=== PATIENT | female | born 1965 | race Caucasian/White ===

== ENCOUNTER 2025-05-31 10:07 | Emergency (ER) | payer OTHER, SELFPAY ==
--- NOTE | ~2025-05-31 | CT_ITS ---
EXAMINATION: CT ABDOMEN PELVIS WITH IV CONTRAST HISTORY: abdominal pain COMPARISON: There are no prior studies for available comparison. TECHNIQUE: CT scan of the abdomen and pelvis was performed following administration of 85 mL Omnipaque 350 using standard departmental protocol. Coronal and sagittal reformatted images were generated and reviewed. Oral contrast material was not administered at the request of the referring physician. This CT exam was performed with one or more of the following dose reduction techniques: automated exposure control, adjustment of the mA and/or kV according to patient size, use of iterative reconstruction technique. DLP: 505 mGy-cm FINDINGS: LOWER CHEST: The visualized lung bases are clear. There is no pleural effusion. CARDIOVASCULATURE: The heart is normal in size. There is no pericardial effusion. LIVER: The liver is normal in size and contour. No liver mass is identified. The hepatic and portal veins are patent. GALLBLADDER / BILE DUCTS: The gallbladder is surgically absent. There is no intra or extrahepatic biliary ductal dilatation. SPLEEN: The spleen is normal in size. No focal splenic lesion is identified. PANCREAS: The pancreas is unremarkable in appearance. ADRENAL GLANDS: Within normal limits. KIDNEYS/RETROPERITONEUM: The kidneys demonstrate lobulated contours. No renal calculi are identified. There is no hydronephrosis. No renal masses are identified. LYMPH NODES: No abdominal or pelvic lymphadenopathy. VASCULATURE: The abdominal aorta is normal in caliber. MESENTERY/PERITONEUM: No free fluid. No masses. There is no free intraperitoneal gas. STOMACH: There is a small hiatal hernia. The remainder of the stomach is collapsed. SMALL BOWEL: The small bowel is normal in caliber. COLON: There are scattered diverticuli of the descending and sigmoid colon, without evidence of diverticulitis APPENDIX: Normal. URINARY BLADDER/PELVIC ORGANS: The urinary bladder is collapsed, limiting evaluation. The uterus and ovaries are unremarkable. BONES / SOFT TISSUES: No suspicious bony or soft tissue abnormalities. CT/CT abdomen pelvis w IV con IMPRESSION: 1. Small hiatal hernia. 2. Diverticulosis of the descending and sigmoid colon, without evidence of diverticulitis. Electronically signed by: Lavelle Wright MD 05/31/2025 12:25 PM EDT
[2025-05-31 10:14] VITALS: BP 166/82; PULSE 86; RESP 20; TEMP 36.3; O2SAT 98; BMI 29.1
[2025-05-31 10:37] LABS: MANUAL DIFF FLAG NO
[2025-05-31 10:39] LABS: Hematocrit 37.8 % (37.0-47.0); Hemoglobin 12.5 g/dl (12.0-16.0); Imm Gran Abs Auto 0.05 X10*3/uL (0.00-0.03); Imm Gran Pct Auto 0.4 % (0.0-0.4); Lymphocytes Absolute Auto 1.8 X10*3/uL (1.2-4.9); Mean Corpuscular HGB Conc 33.1 g/dl (31.0-35.0); Mean Corpuscular Hemoglobin 29.5 pg (27.0-33.0); Mean Corpuscular Volume 89.2 fL (80.0-98.0); NRBC Abs Auto 0.000 X10*3/uL (0.0-0.012); NRBC Pct Auto 0.0 /100WBC (0.0-0.2); Platelet Count 285 X10*3/uL (160-400); Red Blood Count 4.24 X10*6/uL (4.20-5.50); White Blood Count 11.3 X10*3/uL (4.8-10.8)
[2025-05-31 10:57] LABS: Alanine Aminotransferase 32 U/L (0-31); Albumin Level 4.1 g/dL (3.5-5.0); Alkaline Phosphatase 94 U/L (39-117); Anion Gap 12 (12-20); Aspartate Amino Transferase 26 U/L (5-31); Blood Urea Nitrogen 16 mg/dL (9-16); Calcium 9.4 mg/dL (8.4-10.2); Carbon Dioxide 25 mmol/L (22-29); Chloride 111 mmol/L (96-108); Creatinine Clr Calc Pharmacy 72.3; Estimated Glomerular Filt Rate > 60; Potassium 4.6 mmol/L (3.3-5.1); Sodium 143 mmol/L (135-145); Total Protein 7.0 g/dL (6.5-8.0)
--- NOTE | 2025-05-31 10:59 | ED_ITS ---
HPI - Abdominal Pain General Chief Complaint: Abdominal Pain Stated Complaint: abd pain and side pain into back Time Seen by Provider: 05/31/25 10:41 Source: patient Mode of arrival: ambulatory Limitations: no limitations History of Present Illness ED Provider: HPI narrative: 59-year-old woman presenting with worsening right-sided abdominal pain, as well as flank pain, has been getting worse over the past few days, she did have recent bladder infection she states she finished a course of antibiotics, she is also developing diarrhea as well and some nausea. No fevers or chills no chest pain or dyspnea. Related Data Previous Rx's ?Medication ?Instructions ?Recorded naproxen 500 mg tablet (Naprosyn) 500 mg PO BID #14 ta bs 05/31/25 ondansetron 4 mg disintegrating 4 mg PO Q8H PRN nausea and 05/31/25 tablet vomiting #4 tabs oxycodone 5 mg tablet 5 mg PO Q6H PRN pain #10 tab s 05/31/25 Allergies Allergy/AdvReac Type Severity Reaction Status Date / Time Penicillins Allergy Unknown Verified 05/31/25 10:14 Review of Systems Constitutional: Reports as per HPI [facility] Social History Social History Smoked in Last 30 Days: Yes Advance Directives: No Advance Directives Information Provided: Yes Do you have a plan to hurt others: No Plan Patient : No Physical Exam ED Vital Signs: Vital Signs - 24 hr 05/31/25 10:14 Temperature 97.3 F Pulse Rate 86 Respiratory Rate 20 Blood Pressure 166/82 H Pulse Oximetry 98 Oxygen Delivery Method Room Air BMI result Body Mass Index 29.1 Const Other: * Gen: ?Overall well-appearing patient * HEENT: PERRLA, EOMI, MMM, * Neck: Supple, no LAD * CV: RRR, no obvious murmurs appreciated * Resp: ?No wheezing rales rhonchi no stridor moving air well * Abd: ?Bowel sounds are present, right lower quadrant tenderness, no CVA tenderness * MSK: FROM, strength 5/5 all extremities * Skin: Warm, dry, intact, * Neuro: ?Alert and oriented x3, moving upper and lower extremities symmetrically, no obvious facial asymmetry noted Medical Decision Making Medical Decision Making [facility] Narrative: Patient is presenting with abdominal pain, flank pain, differential is quite broad involving renal, colonic issues, we will require imaging, we will start with pain control, we will continue to monitor, disposition to be determined. Differential Diagnosis Differential Diagnoses: The differential diagnosis associated with the presentation includes Pyelonephritis, appendicitis, diverticulitis, volvulus, hernia, renal colic Admission/Observation Consideration of admission/observation: Escalation of care including admission/observation considered 2022 Emergency Medicine Coding Guide from [employer] on 05/31/2025 All calculations should be rechecked by clinician prior to use RESULT SUMMARY: 5 Estimated Level of Service Problems: Moderate (4) Risk: High (5) Data: Extensive (5) NARRATIVE MDM: This patient's problem complexity is Moderate as patient: has a new undiagnosed problem with uncertain prognosis but that could be serious. This patient's risk is High due to: overall presentation requiring evaluation for a potentially High-risk process. This patient's data complexity is Extensive due to: -multiple tests ordered/reviewed -independent interpretation of imaging or EKG INPUTS: Number and Complexity ?> 5 = 4: undiagnosed new problem, uncertain outcome (e) Risk level ?> 4 = High Tests ordered ?> 2 = 2 Tests results reviewed (excluding labs) ?> 2 = 2 Prior external notes reviewed ?> 0 = 0 Assessment requiring and independent historian ?> 0 = No Independent interpretation of tests ?> 1 = Yes Discussed management/test interpretation w/external professional ?> 0 = No Lab Data MDM Lab Attestation statement: I reviewed the patient's lab results. 05/31/25 10:32 05/31/25 10:32 Labs: Lab Results 05/31/25 05/31/25 Range/Units 10:32 11:13 WBC 11.3 H (4.8-10.8) X10*3/uL RBC 4.24 (4.20-5.50) X10*6/uL Hgb 12.5 (12.0-16.0) g/dl Hct 37.8 (37.0-47.0) % MCV 89.2 (80.0-98.0) fL MCH 29.5 (27.0-33.0) pg MCHC 33.1 (31.0-35.0) g/dl RDW 13.2 (11.0-16.0) % Plt Count 285 (160-400) X10*3/uL MPV 10.1 (9.4-12.3) fL Immature Gran % (Auto) 0.4 (0.0-0.4) % Neut % (Auto) 76.2 H (45-73) % Lymph % (Auto) 15.8 L (20-40) % [place] % (Auto) 6.3 (2-11) % Eos % (Auto) 0.9 (0-4) % Baso % (Auto) 0.4 (0-2) % Lymph # (Auto) 1.8 (1.2-4.9) X10*3/uL [place] # (Auto) 0.7 (0.1-1.2) X10*3/uL Eos # (Auto) 0.1 (0.0-0.4) X10*3/uL Baso # (Auto) 0.1 (0.0-0.2) X10*3/uL Abs Immat Gran (auto) 0.05 H (0.00-0.03) X10*3/uL Absolute Neuts (auto) 8.6 H (2.0-8.3) x10*3/uL Absolute Nucleated RBC 0.000 (0.0-0.012) X10*3/uL Nucleated RBC % (auto) 0.0 (0.0-0.2) /100WBC Sodium 143 (135-145) mmol/L Potassium 4.6 (3.3-5.1) mmol/L Chloride 111 H (96-108) mmol/L Carbon Dioxide 25 (22-29) mmol/L Anion Gap 12 (12-20) BUN 16 (9-16) mg/dL Creatinine 0.82 (0.5-1.4) mg/dL Estim Creat Clear Calc 72.3 Estimated GFR > 60 Random Glucose 168 H (60-115) mg/dL Calcium 9.4 (8.4-10.2) mg/dL Total Bilirubin 0.2 (0.0-1.0) mg/dL AST 26 (5-31) U/L ALT 32 H (0-31) U/L Alkaline Phosphatase 94 (39-117) U/L Total Protein 7.0 (6.5-8.0) g/dL Albumin 4.1 (3.5-5.0) g/dL Urine Color Yellow Urine Appearance Clear Urine pH 5.5 (5.0-9.0) Ur Specific [place] >= 1.030 H (1.005-1.025) Urine Protein Trace (Neg-Trace) mg/dL Urine Glucose (UA) 100 H (Negative) mg/dL Urine Ketones Trace (Negative) mg/dL Urine Blood Negative (Negative) Urine Nitrite Negative (Negative) Ur Leukocyte Esterase Small (1+) H (Negative) Urine RBC 0-2 (0-2) /HPF Urine WBC 6-10 H (0-5) /HPF Ur Squamous Epith Cells 6-10 (0-2) /HPF Urine Bacteria None Seen (None Seen) Hyaline Casts 3-5 (0-2) /LPF Radiology Impression Discussion of test interpretation with radiology: I have reviewed the radiologist's reading. (1. Small hiatal hernia. 2. Diverticulosis of the descending and sigmoid colon, without evidence of diverticulitis.) Medications Administered Discontinued Medications Generic Name Dose Route Start Last Admin Trade Name Freq PRN Reason Stop Dose Admin Sodium Chloride 1,000 mls @ 999 mls/hr 05/31/25 11:00 05/31/25 12:02 Ns IV 05/31/25 12:00 999 mls/hr .Q1H1M TEMO Administration Iohexol 100 ml 05/31/25 12:08 05/31/25 12:12 Iohexol 350 Mg/Ml 100 Ml Infus..Btl IV 05/31/25 12:09 85 ml ONCE ONE Administration Ketorolac Tromethamine 15 mg 05/31/25 10:49 05/31/25 12:00 Ketorolac Tromethamine 15 Mg/Ml Vial IVPUSH 05/31/25 10:50 15 mg ONCE ONE Administration Ondansetron HCl 4 mg 05/31/25 10:49 05/31/25 12:00 Ondansetron Hcl 4 Mg/2 Ml Vial IVPUSH 05/31/25 10:50 4 mg ONCE ONE Administration Discharge Plan Discharge Clinical Impression: Right flank pain, Abdominal pain, right lower quadrant Patient Disposition: Home, Self-Care Additional Instructions: Blood work largely reassuring, cat scan without any kidney stones or kidney issues, your blood work also reassuring as well as urine, I am not sure what is causing your discomfort I suspect it is musculoskeletal, I recommend they take Naprosyn 500 mg twice a day, Zofran as needed for nausea and vomiting as you are having diarrhea just keep up with fluid losses and oxycodone to help with the additional pain control otherwise follow up with the PCP any other issues or concerns come back to the ER Prescriptions: New naproxen [Naprosyn] 500 mg tablet 500 mg PO BID Qty: 14 0RF ondansetron 4 mg tablet,disintegrating 4 mg PO Q8H PRN (Reason: nausea and vomiting) Qty: 4 0RF oxycodone 5 mg tablet 5 mg PO Q6H PRN (Reason: pain) Qty: 10 0RF Rx Instructions: Partial Fill upon patient request. Print Language: Turkmen
[2025-05-31 11:25] LABS: Appearance Urine Clear; Glucose Urine UA 100 mg/dL (Negative); PH 5.5 (5.0-9.0); Specific Gravity - Urine >= 1.030 (1.005-1.025); UMIC TRIGGER UACC YES
[2025-05-31 11:41] LABS: UACC Culture Trigger YES
[2025-05-31] MEDS: iohexoL 350 MG/ML 100 ML INFUS..BTL IV (12:12)
[2025-05-31 13:28] VITALS: BP 132/71; PULSE 78; RESP 16; TEMP 36.6; O2SAT 97
== END 2025-05-31 13:40 | disposition home or self-care (01) ==
PROVIDERS: Emergency Provider Emergency Medicine; PCP Internal Medicine
DX: R10.31 Right lower quadrant pain (principal); M54.50 Low back pain, unspecified; Z79.899 Other long term (current) drug therapy
CPT/HCPCS: 36415; 74177; 80053; 81001; 85025; 87086; 87147; 96372; 96374; 96375; 99284; J1790; J1885; J2405; Q9967

== ENCOUNTER → 2025-05-31 10:50 | Outpatient (BNV) | payer OTHER, SELFPAY | PROVIDERS: Emergency Provider Emergency Medicine; PCP Internal Medicine; Visit Provider Radiology Diagnostic Radiology | DX: K57.30 Diverticulosis of large intestine without perforation or abscess without bleeding (principal) | CPT/HCPCS: 74177 ==